=== PATIENT | male | born 1995 | race Two or more races ===

== ENCOUNTER 2018-08-30 08:29 | Emergency (ER) | payer MEDICAID ==
[~2018-08-30] VITALS: Ht 175.3 cm; Wt 108.9 kg
[2018-08-30 08:39] VITALS: BP 147/74
[2018-08-30] MEDS ORDERED: cefTRIAXone SOD 1,000 MG VL IM ONE (10:00)
[2018-08-30] MEDS ORDERED: LIDOCAINE 1% HCL (LOCAL ANESTH.) INJ 20ML MDV IJ ONE (10:00)
[2018-08-30] MEDS ORDERED: KETOROLAC TROMETH 60MG/2ML VIAL IM ONE (10:15)
== END 2018-08-30 10:39 | disposition home or self-care (01) ==
LOC: ER 08:31
DX: L02.212 Cutaneous abscess of back [any part, except buttock and flank] (principal)
CPT/HCPCS: 10060; 96372; 99283; J0696; J1885; J2001

== ENCOUNTER 2019-03-06 18:47 | Emergency (ER) | payer MEDICAID, OTHER ==
[~2019-03-06] VITALS: Ht 175.3 cm; Wt 117.9 kg
[2019-03-06 19:52] VITALS: BP 132/68
[2019-03-06] MEDS ORDERED: LIDOCAINE W/ EPINEPHRINE 2% INJ 20ML VIAL IJ ONE (20:00)
== END 2019-03-06 20:22 | disposition home or self-care (01) ==
LOC: ER 18:52
DX: L05.01 Pilonidal cyst with abscess (principal)
CPT/HCPCS: 10080

== ENCOUNTER 2019-03-07 14:42 | Emergency (ER) | payer OTHER ==
[~2019-03-07] VITALS: Ht 175.3 cm; Wt 117.9 kg
[2019-03-07 15:16] VITALS: BP 138/85
== END 2019-03-07 15:47 | disposition home or self-care (01) ==
LOC: ER 14:42
DX: L02.31 Cutaneous abscess of buttock (principal); Z48.00 Encounter for change or removal of nonsurgical wound dressing

== ENCOUNTER → 2019-04-23 | Emergency (ER) | payer OTHER ==
[~2019-04-23] VITALS: Ht 175.3 cm; Wt 113.4 kg
[~2019-04-23] MED LIST: MORPHINE SULFATE 4 MG/ML SYR/VIAL IV ONE; ONDANSETRON HCL 4 MG/2 ML VIAL IV ONE; PROMETHAZINE HCL 6.25 MG/5 ML ORAL SYRUP PO ONE; SODIUM CHLORIDE 0.9% 1,000 ML IV ONE; levoFLOXacin 750MG 150 ML IV ONE
[2019-04-23 22:05] LABS: Basophils # (auto) 0 10 ^3/uL (0-0.2); Basophils % (auto) 0.2 % (0.0-2.0); Eosinophils # (auto) 0.1 10 ^3/uL (0-0.8); Eosinophils % (auto) 1.2 % (0.0-7.0); Hematocrit 42.9 % (41.0-53.0); Hemoglobin 14.7 g/dL (13.5-17.5); Lymphocytes # (auto) 2.9 10 ^3/uL (0.4-5.4); Lymphocytes % (auto) 24.7 % (10.0-50.0); Mean Corpuscular Hemoglobin 30.4 pg (28.0-32.0); Mean Corpuscular Hgb Conc. 34.4 g/dL (32.0-36.0); Mean Corpuscular Volume 88.4 fL (80.0-100.0); Monocytes # (auto) 0.8 10 ^3/uL (0-1.3); Monocytes % (auto) 6.9 % (0.0-12.0); Nucleated Red Blood Cells % 0.1 %; Platelet Count (auto) 184 10^3/uL (140-450); Red Blood Cells 4.85 10^6/uL (4.5-5.90); Red Cell Distribution Width 13.1 % (11.8-14.3); White Blood Cell 11.9 10^3/uL (4.4-10.8)
[2019-04-23 22:25] LABS: Albumin 3.6 g/dL (3.4-5.0); BUN/Creatinine Ratio 18.7; Calcium 8.9 mg/dL (8.5-10.1); Potassium 3.5 mmol/L (3.5-5.1)
[2019-04-23 22:28] LABS: Bilirubin, Total 0.3 mg/dL (0.2-1.0); Total Protein 8.5 g/dL (6.4-8.2)
[2019-04-24 01:26] LABS: Urine Bacteria FEW /hpf (None Seen); Urine Blood Negative /uL (Negative); Urine Hyaline Cast FEW /lpf (0 - 2); Urine Mucus MODERATE (None Seen); Urine Specific Gravity 1.034 (1.001-1.035); Urine WBC 3 /hpf (0 - 3)
[2019-04-24 03:01] VITALS: BP 114/54
== END | disposition home or self-care (01) ==
LOC: EDUNIT# 20:37 → EDSEX 20:50 → EDBD 20:50 → ER 20:53
DX: K29.00 Acute gastritis without bleeding (principal)
CPT/HCPCS: 36415; 71046; 80053; 81001; 83605; 85025; 87040; 87070; 87804; 87880; 96361; 96365; 96366; 96375; 99284; J1956; J2270; J2405

== ENCOUNTER 2019-11-12 09:45 | Emergency (ER) | payer SELFPAY ==
[~2019-11-12] VITALS: Ht 175.3 cm; Wt 108.9 kg
[2019-11-12 09:51] VITALS: BP 152/87
[2019-11-12] MEDS ORDERED: ACETAMINOPHEN 500 MG TAB PO ONE (10:15)
[2019-11-12] MEDS ORDERED: METHOCARBAMOL 500 MG TAB PO ONE (10:15)
== END 2019-11-12 11:45 | disposition home or self-care (01) ==
LOC: ER 09:45 → EDBD 09:45 → ER 11:45
DX: M25.511 Pain in right shoulder (principal); M62.838 Other muscle spasm; R55 Syncope and collapse; V49.9XXA Car occupant (driver) (passenger) injured in unspecified traffic accident, initial encounter; Y93.89 Activity, other specified; Y92.89 Other specified places as the place of occurrence of the external cause; Y99.8 Other external cause status
CPT/HCPCS: 70450; 72040; 73030

== ENCOUNTER 2020-06-14 05:20 | Emergency (ER) | payer OTHER ==
[~2020-06-14] VITALS: Ht 175.3 cm; Wt 127.0 kg
[2020-06-14 07:43] VITALS: BP 145/89
[2020-06-14] MEDS ORDERED: LIDOCAINE 1% HCL (LOCAL ANESTH.) INJ 20ML MDV IJ ONE (08:00)
== END 2020-06-14 08:52 | disposition home or self-care (01) ==
LOC: ER 05:20
DX: L05.01 Pilonidal cyst with abscess (principal)
CPT/HCPCS: 10080; 99283; J2001

== ENCOUNTER 2020-06-22 12:11 | Inpatient (IN) | payer OTHER ==
[~2020-06-22] VITALS: Ht 175.3 cm; Wt 132.0 kg
[2020-06-22] MEDS ORDERED: CLINDAMYCIN 600MG IV 50 ML IV ONE (15:00)
[2020-06-22] MEDS ORDERED: HYDROcodone-ACET 5/325MG TAB PO ONE (15:00)
[2020-06-22 15:20] LABS: Basophils # (auto) 0 10 ^3/uL (0-0.2); Basophils % (auto) 0.3 % (0.0-2.0); Eosinophils # (auto) 0.1 10 ^3/uL (0-0.8); Eosinophils % (auto) 0.5 % (0.0-7.0); Hematocrit 39.7 % (41.0-53.0); Hemoglobin 13.6 g/dL (13.5-17.5); Lymphocytes # (auto) 1.6 10 ^3/uL (0.4-5.4); Mean Corpuscular Hemoglobin 29.9 pg (28.0-32.0); Mean Corpuscular Hgb Conc. 34.2 g/dL (32.0-36.0); Mean Corpuscular Volume 87.3 fL (80.0-100.0); Monocytes % (auto) 7.4 % (0.0-12.0); Neutrophils # (auto) 10.8 10 ^3/uL (1.6-8.6); Neutrophils % (auto) 79.8 % (37.0-80.0); Nucleated Red Blood Cells % 0.1 %; Platelet Count (auto) 194 10^3/uL (140-450); Red Blood Cells 4.55 10^6/uL (4.5-5.90); White Blood Cell 13.5 10^3/uL (4.4-10.8)
[2020-06-22 15:34] LABS: Albumin 3.5 g/dL (3.4-5.0); Calcium 8.4 mg/dL (8.5-10.1); Potassium 3.7 mmol/L (3.5-5.1)
[2020-06-22 15:40] LABS: BUN/Creatinine Ratio 18.1; Bilirubin, Total 1.2 mg/dL (0.2-1.0); Total Protein 7.6 g/dL (6.4-8.2)
[2020-06-22] MEDS ORDERED: VANCOMYCIN 1GM/250ML 250 ML IV ONE (17:30)
[2020-06-22] MEDS ORDERED: MORPHINE SULFATE 4 MG/ML SYR/VIAL IV ONE (17:30)
[2020-06-22] MEDS ORDERED: IOHEXOL 300 MG/ML 100ML BOTTLE IJ ONE (17:38)
[2020-06-22] MEDS: SODIUM CHLORIDE 0.9% 1,000 ML IV SCH (18:30)
[2020-06-22] MEDS ORDERED: SODIUM CHLORIDE 0.9% 500 ML IV ONE (18:30)
[2020-06-22] MEDS ORDERED: HYDROcodone-ACET 5/325MG TAB PO PRN (18:30)
[2020-06-22] MEDS ORDERED: VANCOMYCIN PER PHARMACY 0 MG IV SCH (18:30)
[2020-06-22] MEDS ORDERED: ACETAMINOPHEN 500 MG TAB PO PRN (18:30)
[2020-06-22] MEDS ORDERED: DOCUSATE SOD 100 MG CAP PO PRN (18:30)
[2020-06-22] MEDS ORDERED: levoFLOXacin 750MG 150 ML IV SCH (18:41)
[2020-06-22] MEDS: MORPHINE SULF INJ 2 MG/ML SYRINGE 1ML IV PRN (22:32)
[2020-06-23] VITALS (7 sets, daily range): BP systolic 121–148; BP diastolic 57–83
[2020-06-23] MEDS: VANCOMYCIN 1GM/250ML 250 ML IV SCH ×3 (01:49→18:41)
[2020-06-23] MEDS: SODIUM CHLORIDE 0.9% 1,000 ML IV SCH ×3 (04:30→22:42)
[2020-06-23 06:00] LABS: Basophils # (auto) 0 10 ^3/uL (0-0.2); Basophils % (auto) 0.3 % (0.0-2.0); Eosinophils # (auto) 0 10 ^3/uL (0-0.8); Eosinophils % (auto) 0.2 % (0.0-7.0); Hematocrit 40.4 % (41.0-53.0); Hemoglobin 14.2 g/dL (13.5-17.5); Lymphocytes # (auto) 2.7 10 ^3/uL (0.4-5.4); Lymphocytes % (auto) 15.6 % (10.0-50.0); Mean Corpuscular Hemoglobin 30.5 pg (28.0-32.0); Mean Corpuscular Hgb Conc. 35.1 g/dL (32.0-36.0); Mean Corpuscular Volume 87.1 fL (80.0-100.0); Monocytes # (auto) 1.5 10 ^3/uL (0-1.3); Monocytes % (auto) 8.5 % (0.0-12.0); Neutrophils # (auto) 13.1 10 ^3/uL (1.6-8.6); Neutrophils % (auto) 75.4 % (37.0-80.0); Nucleated Red Blood Cells % 0.1 %; Platelet Count (auto) 239 10^3/uL (140-450); Red Blood Cells 4.64 10^6/uL (4.5-5.90); Red Cell Distribution Width 12.8 % (11.8-14.3); White Blood Cell 17.4 10^3/uL (4.4-10.8)
[2020-06-23 06:19] LABS: Calcium 8.9 mg/dL (8.5-10.1); Potassium 3.6 mmol/L (3.5-5.1)
[2020-06-23] MEDS: MORPHINE SULF INJ 2 MG/ML SYRINGE 1ML IV PRN ×3 (06:21→15:39)
[2020-06-23 06:24] LABS: INR 1.08 (0.9-1.15); Partial Thromboplastin Time 29.7 sec (23.0-31.2)
[2020-06-23 06:57] LABS: Urine Bacteria FEW /hpf (None Seen); Urine Blood Negative /uL (Negative); Urine Mucus FEW (None Seen); Urine Specific Gravity 1.035 (1.001-1.035); Urine WBC 4 /hpf (0 - 3)
[2020-06-23] MEDS: levoFLOXacin 750MG 150 ML IV SCH (11:14)
[2020-06-23] MEDS ORDERED: POTASSIUM CHL 10 Meq TABLET PO ONE (13:30)
[2020-06-23] MEDS: HYDROmorphone HCL 2 MG/ML VL IV PRN ×2 (18:42→22:42)
[2020-06-23] MEDS: ONDANSETRON HCL 4 MG/2 ML VIAL IV PRN (22:32)
[2020-06-24] MEDS ORDERED: VANCOMYCIN 1GM/250ML 250 ML IV SCH (01:00)
[2020-06-24] MEDS: HYDROmorphone HCL 2 MG/ML VL IV PRN ×2 (04:58→20:22)
[2020-06-24 05:17] VITALS: BP 116/50
[2020-06-24 06:03] LABS: Basophils # (auto) 0 10 ^3/uL (0-0.2); Basophils % (auto) 0.2 % (0.0-2.0); Eosinophils # (auto) 0.1 10 ^3/uL (0-0.8); Eosinophils % (auto) 0.5 % (0.0-7.0); Hematocrit 36.5 % (41.0-53.0); Hemoglobin 12.8 g/dL (13.5-17.5); Lymphocytes # (auto) 1.7 10 ^3/uL (0.4-5.4); Mean Corpuscular Hemoglobin 30.6 pg (28.0-32.0); Mean Corpuscular Hgb Conc. 35.2 g/dL (32.0-36.0); Mean Corpuscular Volume 87.1 fL (80.0-100.0); Monocytes # (auto) 1.2 10 ^3/uL (0-1.3); Monocytes % (auto) 9.3 % (0.0-12.0); Neutrophils # (auto) 10.3 10 ^3/uL (1.6-8.6); Nucleated Red Blood Cells % 0.1 %; Platelet Count (auto) 192 10^3/uL (140-450); Red Blood Cells 4.19 10^6/uL (4.5-5.90); Red Cell Distribution Width 12.4 % (11.8-14.3); White Blood Cell 13.4 10^3/uL (4.4-10.8)
[2020-06-24 06:20] LABS: BUN/Creatinine Ratio 15.1; Calcium 8.3 mg/dL (8.5-10.1); Potassium 3.7 mmol/L (3.5-5.1)
[2020-06-24] MEDS ORDERED: ceFAZolin 1GM/50ML 100 ML IV ONE (07:05)
[2020-06-24] MEDS ORDERED: ceFAZolin 1GM/50ML 50 ML IV ONE (07:18)
[2020-06-24] MEDS ORDERED: SUCCINYLCHOLINE CHLORIDE 20 MG/ML 10ML VIAL IV ONE (07:21)
[2020-06-24] MEDS ORDERED: LIDOCAINE 2% (LOCAL ANESTH.) PF 5ml SDV ONE (07:24)
[2020-06-24] MEDS ORDERED: ROCURONIUM 10MG/ML 10ML VIAL IV ONE (07:24)
[2020-06-24] MEDS ORDERED: ONDANSETRON HCL 4 MG/2 ML VIAL ONE (07:24)
[2020-06-24] MEDS ORDERED: GLYCOPYRROLATE 0.2 MG/ML 1ML VIAL ONE (07:24)
[2020-06-24] MEDS ORDERED: KETOROLAC TROMETH 30 MG/ML 1ML VIAL ONE (07:24)
[2020-06-24] MEDS ORDERED: MEPERIDINE HCL (50 MG/ML) 1 ML VIAL ONE (07:24)
[2020-06-24] MEDS ORDERED: DexAMETHasone SOD PHOS 10MG/1ML VIAL INJ ONE (07:24)
[2020-06-24] MEDS ORDERED: PROPOFOL 10 MG/ML 20 ML IV ONE (07:24)
[2020-06-24] MEDS ORDERED: fentaNYL CITRATE 100 MCG/2 ML VL ONE ×2 (07:24→07:58)
[2020-06-24] MEDS ORDERED: MIDAZOLAM HCL 1MG/1ML-2 ML VIAL ONE (07:25)
[2020-06-24] MEDS ORDERED: ceFAZolin 1GM VL ONE (08:07)
[2020-06-24] MEDS ORDERED: ONDANSETRON HCL 4 MG/2 ML VIAL IV PRN (09:00)
[2020-06-24] MEDS ORDERED: HYDROmorphone HCL 2 MG/ML VL IV PRN (09:00)
[2020-06-24] MEDS: VANCOMYCIN 1GM/250ML 250 ML IV SCH ×2 (10:30→18:27)
[2020-06-24] MEDS: levoFLOXacin 750MG 150 ML IV SCH (11:30)
[2020-06-24 12:40] VITALS: BP 117/67
[2020-06-24] MEDS: SODIUM CHLORIDE 0.9% 1,000 ML IV SCH ×2 (13:55→18:42)
[2020-06-24 16:27] VITALS: BP 129/68
[2020-06-24 20:00] VITALS: BP 110/40
[2020-06-24] MEDS: ONDANSETRON HCL 4 MG/2 ML VIAL IV PRN (20:22)
[2020-06-24 21:33] VITALS: BP 110/40
[2020-06-25] MEDS: VANCOMYCIN 1GM/250ML 250 ML IV SCH ×3 (01:24→15:53)
[2020-06-25] MEDS: HYDROmorphone HCL 2 MG/ML VL IV PRN (01:36)
[2020-06-25 05:00] VITALS: BP 125/57
[2020-06-25 09:00] VITALS: BP 121/54
[2020-06-25] MEDS: levoFLOXacin 750MG 150 ML IV SCH (10:11)
[2020-06-25 10:26] LABS: Basophils # (auto) 0 10 ^3/uL (0-0.2); Basophils % (auto) 0.2 % (0.0-2.0); Eosinophils # (auto) 0 10 ^3/uL (0-0.8); Eosinophils % (auto) 0.2 % (0.0-7.0); Hematocrit 33.9 % (41.0-53.0); Hemoglobin 11.7 g/dL (13.5-17.5); Lymphocytes # (auto) 2.6 10 ^3/uL (0.4-5.4); Lymphocytes % (auto) 19.8 % (10.0-50.0); Mean Corpuscular Hgb Conc. 34.5 g/dL (32.0-36.0); Monocytes # (auto) 0.7 10 ^3/uL (0-1.3); Monocytes % (auto) 5.5 % (0.0-12.0); Neutrophils # (auto) 9.6 10 ^3/uL (1.6-8.6); Neutrophils % (auto) 74.3 % (37.0-80.0); Platelet Count (auto) 220 10^3/uL (140-450); Red Cell Distribution Width 12.4 % (11.8-14.3); White Blood Cell 12.9 10^3/uL (4.4-10.8)
[2020-06-25 13:00] VITALS: BP 101/59
[2020-06-25] MEDS ORDERED: METR500T PO (13:16)
[2020-06-25] MEDS ORDERED: ONDA-144 PO (13:16)
[2020-06-25] MEDS ORDERED: LEVO750T64 PO (13:16)
[2020-06-25] MEDS ORDERED: IBUP400T22 PO (13:16)
[2020-06-25] MEDS ORDERED: PANT40TA2 PO (16:07)
[2020-06-25] MEDS ORDERED: PANTOPRAZOLE 40 MG TAB PO ONE (16:15)
[2020-06-25] MEDS ORDERED: METOCLOPRAMIDE HCL 5MG/ml INJ 2ml VIAL IV ONE (16:15)
[2020-06-25 17:00] VITALS: BP 118/69
== END 2020-06-25 19:30 | disposition home health service (06) | DRG 710 ==
LOC: ER 12:11 → OVERFLOW 18:29 → WEST WING 20:51
PROVIDERS: ADMIT Nurse Practitioner Acute Care; ATTEND Internal Medicine
PROC: 0J990ZZ Drainage of Buttock Subcutaneous Tissue and Fascia, Open Approach (ICD-10-PCS; principal; 2020-06-24 07:40)
DX: A41.9 Sepsis, unspecified organism (principal); E66.01 Morbid (severe) obesity due to excess calories; Z68.41 Body mass index [BMI] 40.0-44.9, adult; L05.91 Pilonidal cyst without abscess; L02.31 Cutaneous abscess of buttock; Z20.822 Contact with and (suspected) exposure to COVID-19; K29.70 Gastritis, unspecified, without bleeding
CPT/HCPCS: 36415; 71045; 74177; 80048; 80053; 80202; 81001; 85025; 85610; 85730; 86850; 86900; 86901; 87040; 87070; 87075; 87205; 87426; 96365; 96367; 96375; A4565; G0378; J0330; J0690; J1100; J1885; J1956; J2001; J2250; J2405; J2704; J3490

== ENCOUNTER 2020-06-30 06:25 | Emergency (ER) | payer OTHER ==
[~2020-06-30] VITALS: Ht 175.3 cm; Wt 131.5 kg
[~2020-06-30 06:25] MED LIST changes: +LEVO750T64 PO; +METR500T PO; -MORPHINE SULFATE 4 MG/ML SYR/VIAL IV ONE; +ONDA-144 PO; -ONDANSETRON HCL 4 MG/2 ML VIAL IV ONE; +PANT40TA2 PO; -PROMETHAZINE HCL 6.25 MG/5 ML ORAL SYRUP PO ONE; -SODIUM CHLORIDE 0.9% 1,000 ML IV ONE; -levoFLOXacin 750MG 150 ML IV ONE
[2020-06-30 06:32] VITALS: BP 113/46
== END 2020-06-30 07:56 | disposition home or self-care (01) ==
LOC: ER 06:25
DX: L02.213 Cutaneous abscess of chest wall (principal)

== ENCOUNTER 2020-08-31 12:22 | Inpatient (IN) | payer OTHER ==
[~2020-08-31] VITALS: Ht 175.3 cm; Wt 132.0 kg
[2020-08-31] MEDS ORDERED: HYDROcodone-ACET 5/325MG TAB PO ONE (13:15)
[2020-08-31] MEDS ORDERED: ONDANSETRON HCL 4 MG/2 ML VIAL IV PRN (14:15)
[2020-08-31] MEDS ORDERED: ACETAMINOPHEN 500 MG TAB PO PRN (14:15)
[2020-08-31 14:40] LABS: Basophils # (auto) 0.1 10 ^3/uL (0-0.2); Basophils % (auto) 0.4 % (0.0-2.0); Eosinophils # (auto) 0 10 ^3/uL (0-0.8); Eosinophils % (auto) 0.2 % (0.0-7.0); Hemoglobin 14.4 g/dL (13.5-17.5); Lymphocytes # (auto) 2.2 10 ^3/uL (0.4-5.4); Lymphocytes % (auto) 16.8 % (10.0-50.0); Mean Corpuscular Hemoglobin 29.9 pg (28.0-32.0); Mean Corpuscular Hgb Conc. 34.4 g/dL (32.0-36.0); Monocytes # (auto) 0.9 10 ^3/uL (0-1.3); Monocytes % (auto) 6.8 % (0.0-12.0); Neutrophils # (auto) 9.7 10 ^3/uL (1.6-8.6); Neutrophils % (auto) 75.8 % (37.0-80.0); Red Blood Cells 4.82 10^6/uL (4.5-5.90); Red Cell Distribution Width 14.4 % (11.8-14.3); White Blood Cell 12.8 10^3/uL (4.4-10.8)
[2020-08-31 14:55] LABS: Albumin 3.7 g/dL (3.4-5.0); Calcium 8.5 mg/dL (8.5-10.1); Potassium 3.4 mmol/L (3.5-5.1)
[2020-08-31 14:59] LABS: BUN/Creatinine Ratio 12.4; Bilirubin, Total 0.9 mg/dL (0.2-1.0); Total Protein 8.1 g/dL (6.4-8.2)
[2020-08-31] MEDS: CLINDAMYCIN 300MG IV 50 ML IV SCH ×2 (14:59→22:37)
[2020-08-31] MEDS: MORPHINE SULFATE INJECTION 2 MG/ML SYRG IV PRN ×2 (15:04→22:34)
[2020-08-31] MEDS: cefTRIAXone 1GM/50ML D5W 50 ML IV SCH (15:34)
[2020-08-31 16:05] LABS: INR 1.01 (0.9-1.15)
[2020-08-31] MEDS ORDERED: SOD CHL 0.9%/ KCL 40MEQ 1,000 ML IV ONE (20:00)
[2020-08-31 23:00] VITALS: BP 142/82
[2020-09-01] MEDS: CLINDAMYCIN 300MG IV 50 ML IV SCH ×3 (04:52→22:02)
[2020-09-01 05:00] VITALS: BP 144/76
[2020-09-01] MEDS: MORPHINE SULFATE INJECTION 2 MG/ML SYRG IV PRN ×3 (05:07→23:56)
[2020-09-01 05:29] LABS: Urine Bacteria NONE SEEN /hpf (None Seen); Urine Blood Negative /uL (Negative); Urine Specific Gravity 1.016 (1.001-1.035); Urine WBC 2 /hpf (0 - 3)
[2020-09-01 09:00] VITALS: BP 133/69
[2020-09-01] MEDS: cefTRIAXone 1GM/50ML D5W 50 ML IV SCH (09:08)
[2020-09-01 13:00] VITALS: BP 131/72
[2020-09-01] MEDS ORDERED: ceFAZolin 1GM/50ML 100 ML IV ONE (13:22)
[2020-09-01] MEDS ORDERED: MIDAZOLAM HCL 2MG/2ML 2ml VIAL (1mg/ml) ONE (14:00)
[2020-09-01] MEDS ORDERED: fentaNYL CITRATE 100 MCG/2 ML VL ONE (14:00)
[2020-09-01] MEDS ORDERED: MEPERIDINE HCL (50 MG/ML) 1 ML VIAL ONE (14:00)
[2020-09-01] MEDS ORDERED: LIDOCAINE W/ EPINEPHRINE 1% 20ML VIAL ONE (14:01)
[2020-09-01] MEDS ORDERED: BUPIVACAINE 0.25% INJ 50ML VIAL ONE (14:01)
[2020-09-01] MEDS ORDERED: KETOROLAC TROMETH 30 MG/ML 1ML VIAL IV ONE (14:15)
[2020-09-01] MEDS ORDERED: MORPHINE SULFATE 4 MG/ML SYR/VIAL IV PRN (14:15)
[2020-09-01] MEDS ORDERED: HYDROmorphone HCL 2 MG/ML VL IV PRN (14:15)
[2020-09-01] MEDS ORDERED: LABETALOL HCL 5 MG/ML 4ML SYRINGE IV PRN (14:15)
[2020-09-01] MEDS ORDERED: ONDANSETRON HCL 4 MG/2 ML VIAL IV PRN (14:15)
[2020-09-01] MEDS ORDERED: hydrALAZINE HCL 20 MG/ML VL IV PRN (14:15)
[2020-09-01] MEDS ORDERED: MIDAZOLAM HCL 2MG/2ML 2ml VIAL (1mg/ml) IV PRN (14:15)
[2020-09-01] MEDS ORDERED: PROPOFOL 10 MG/ML 20 ML IV ONE ×2 (14:17→14:31)
[2020-09-01] MEDS ORDERED: DexAMETHasone SOD PHOS 10MG/1ML VIAL INJ ONE (14:31)
[2020-09-01 16:58] VITALS: BP 133/68
[2020-09-01 21:32] VITALS: BP 138/70
[2020-09-02 04:31] VITALS: BP 133/58
[2020-09-02] MEDS: CLINDAMYCIN 300MG IV 50 ML IV SCH ×3 (05:02→22:37)
[2020-09-02 08:09] VITALS: BP 127/89
[2020-09-02] MEDS: cefTRIAXone 1GM/50ML D5W 50 ML IV SCH (08:14)
[2020-09-02 13:00] VITALS: BP 149/85
[2020-09-02] MEDS: MORPHINE SULFATE INJECTION 2 MG/ML SYRG IV PRN ×2 (14:10→22:38)
[2020-09-02 17:00] VITALS: BP 134/72
[2020-09-02 20:00] VITALS: BP 149/86
[2020-09-02 22:00] VITALS: BP 149/86
[2020-09-02] MEDS: HYDROcodone-ACET 5/325MG TAB PO PRN (23:13)
[2020-09-03 05:00] VITALS: BP_SYST 103; BP_SYST 91; BP_DIAS 54; BP_DIAS 60
[2020-09-03] MEDS: MORPHINE SULFATE INJECTION 2 MG/ML SYRG IV PRN (05:28)
[2020-09-03] MEDS: CLINDAMYCIN 300MG IV 50 ML IV SCH ×2 (05:28→14:00)
[2020-09-03 08:40] VITALS: BP 93/48
[2020-09-03] MEDS: cefTRIAXone 1GM/50ML D5W 50 ML IV SCH (10:23)
[2020-09-03] MEDS: HYDROcodone-ACET 5/325MG TAB PO PRN (10:52)
[2020-09-03 13:28] VITALS: BP 96/39
[2020-09-03 13:30] VITALS: BP 125/63
[2020-09-03 16:21] VITALS: BP 119/64
== END 2020-09-03 17:40 | disposition home or self-care (01) | DRG 383 ==
LOC: ER 12:22 → OVERFLOW 14:06 → CENTRAL 22:15
PROVIDERS: ADMIT Nurse Practitioner Acute Care; ATTEND Family Medicine
PROC: 0H98XZZ Drainage of Buttock Skin, External Approach (ICD-10-PCS; principal; 2020-09-01 14:04)
DX: L05.01 Pilonidal cyst with abscess (principal); L02.212 Cutaneous abscess of back [any part, except buttock and flank]; Z68.41 Body mass index [BMI] 40.0-44.9, adult; E66.9 Obesity, unspecified; L03.90 Cellulitis, unspecified; Z20.822 Contact with and (suspected) exposure to COVID-19
CPT/HCPCS: 36415; 71046; 74176; 80053; 81001; 85025; 85610; 85730; 86850; 86900; 86901; 87040; 87070; 87075; 87205; 87426; G0378; J0690; J0696; J1100; J2250; J2405; J2704; J3490

== ENCOUNTER 2021-04-12 22:01 | Emergency (ER) | payer OTHER ==
[~2021-04-12] VITALS: Ht 175.3 cm; Wt 136.1 kg
[2021-04-12] MEDS ORDERED: ONDANSETRON HCL 4 MG/2 ML VIAL IV ONE (22:30)
[2021-04-12] MEDS ORDERED: SODIUM CHLORIDE 0.9% 1,000 ML IVB ONE (22:30)
[2021-04-12] MEDS ORDERED: POTASSIUM EFFERVESENT TAB 25 MEQ PO ONE (23:00)
[2021-04-12] MEDS ORDERED: ASPirin 81 mg TAB PO ONE (23:00)
[2021-04-12 23:12] LABS: Basophils # (auto) 0 10 ^3/uL (0-0.2); Basophils % (auto) 0.2 % (0.0-2.0); Eosinophils # (auto) 0.2 10 ^3/uL (0-0.8); Eosinophils % (auto) 2.2 % (0.0-7.0); Hematocrit 41.6 % (41.0-53.0); Hemoglobin 14.3 g/dL (13.5-17.5); Lymphocytes # (auto) 3.5 10 ^3/uL (0.4-5.4); Lymphocytes % (auto) 36.4 % (10.0-50.0); Mean Corpuscular Hemoglobin 30.3 pg (28.0-32.0); Mean Corpuscular Hgb Conc. 34.5 g/dL (32.0-36.0); Mean Corpuscular Volume 87.8 fL (80.0-100.0); Monocytes # (auto) 0.6 10 ^3/uL (0-1.3); Monocytes % (auto) 6.6 % (0.0-12.0); Neutrophils # (auto) 5.2 10 ^3/uL (1.6-8.6); Neutrophils % (auto) 54.6 % (37.0-80.0); Nucleated Red Blood Cells % 0.1 %; Red Blood Cells 4.74 10^6/uL (4.5-5.90); White Blood Cell 9.5 10^3/uL (4.4-10.8)
[2021-04-12] MEDS ORDERED: SODIUM BICARBONATE 8.4 % INJ 50ML VIAL IV ONE (23:30)
[2021-04-12 23:37] LABS: Albumin 3.8 g/dL (3.4-5.0); Calcium 8.7 mg/dL (8.5-10.1); Magnesium 2.3 mg/dL (1.6-2.6); Potassium 3.5 mmol/L (3.5-5.1)
[2021-04-12 23:45] LABS: Bilirubin, Total 0.3 mg/dL (0.2-1.0); Total Protein 7.8 g/dL (6.4-8.2)
[2021-04-13 01:33] VITALS: BP 124/64
== END 2021-04-13 01:44 | disposition home or self-care (01) ==
LOC: ER 22:05
DX: K21.00 Gastro-esophageal reflux disease with esophagitis, without bleeding (principal)
CPT/HCPCS: 36415; 71045; 80053; 83690; 83735; 84484; 85025; 93005